=== PATIENT | female | born 1960 | race Caucasian/White ===

== ENCOUNTER 2017-02-19 01:11 | Emergency (ER) | payer BC ==
[~2017-02-19] VITALS: Ht 154.9 cm; Wt 90.7 kg
--- NOTE | 2017-02-19 01:17 | NUR ---
BB SELF; DIFUSE ABD PAIN. HAS URGE TO HAVE BM BUT UNABLE TO. PT STATES LAST BM WAS YESTERDAY MORNING, BUT VERY LITTLE. PT AOX4 RR EVEN AND UNLABORED. NO SOB NOTED. NAD NOTED. NO NVD AT THIS TIME. PT NOT DIAPHORETIC. PT GOWNED AND PLACED ON MONITOR
[2017-02-19] MEDS ORDERED: MINERAL OIL 133 ML (PYXIS) 1 EA ENEMA RC ONE ×2 (01:18→01:30)
--- NOTE | 2017-02-19 01:18 | NUR ---
DR. PIRES AT BEDSIDE FOR EVAL
--- NOTE | 2017-02-19 01:58 | NUR ---
IV STARTED ON LEFT AC 18, LABS DRAWN AND SENT TO LAB
[2017-02-19] MEDS ORDERED: IV NS 0.9% 1,000 ML ONE (01:59)
[2017-02-19] MEDS ORDERED: IV SET PRIMARY 1 EA INFUS.SET MC ONE (01:59)
[2017-02-19] MEDS ORDERED: IV NS 0.9% 1,000 ML BAG IV ONE (02:00)
[2017-02-19 02:05] LABS: BASOPHILS # (AUTO) 0.1 /CMM (0.0-0.2); BASOPHILS % (AUTO) 0.5 % (0.0-2.0); EOSINOPHILS # (AUTO) 0.5 /CMM (0.0-0.7); EOSINOPHILS % (AUTO) 4.7 % (0.0-6.0); HEMATOCRIT 43 % (33-45); HEMOGLOBIN 14.6 g/dL (11.5-14.8); LYMPHOCYTES # (AUTO) 2.6 /CMM (0.8-4.8); LYMPHOCYTES % (AUTO) 24.3 % (20.0-44.0); MEAN CORPUSCULAR HEMOGLOBIN 31 PG (26.0-33.0); MEAN CORPUSCULAR HGB CONC 34 g/dl (31.0-36.0); MEAN CORPUSCULAR VOLUME 93 fL (82-100); MONOCYTES # (AUTO) 0.8 /CMM (0.1-1.30); NEUTROPHILS # (AUTO) 6.6 /CMM (1.8-8.9); NEUTROPHILS % (AUTO) 62.5 % (43.0-81.0); PLATELET COUNT (AUTO) 281 /CMM (150-450); RDW COEFFICIENT OF VARIATION 12.9 (11.5-15.0); RED BLOOD CELL COUNT(AUTO) 4.68 MIL/uL (4.0-5.2); WHITE BLOOD COUNT (AUTO) 10.6 K/uL (4.3-11.0)
--- NOTE | 2017-02-19 02:05 | NUR ---
PER PT STATES HAD A CT SCAN OF HER ABD LAST WEEK AT [address] PER DR. WEST. DR. PIRES AT BEDSIDE SPEAKING TO PT.
--- NOTE | 2017-02-19 02:07 | NUR ---
PT TO RADIOLOGY FOR CT OF ABD
[2017-02-19 02:15] LABS: CALCIUM, SERUM 8.6 mg/dL (8.5-10.1); POTASSIUM 3.7 mmol/L (3.5-5.1)
[2017-02-19 02:21] LABS: ALBUMIN 3.8 g/dL (3.4-5.0); BILIRUBIN,DIRECT 0.1 mg/dL (0.0-0.2); BILIRUBIN,TOTAL 0.4 mg/dL (0.2-1.0); TOTAL PROTEIN, SERUM 7.8 g/dL (6.4-8.2)
--- NOTE | 2017-02-19 02:25 | NUR ---
PT RETURNED FROM CT.
[2017-02-19] MEDS ORDERED: CIPROFLOXACIN HCL 500 MG TABLET ONE (03:05)
[2017-02-19] MEDS ORDERED: METRONIDAZOLE 500 MG TABLET ONE (03:21)
[2017-02-19 03:24] LABS: APPEARANCE,URINE CLEAR (CLEAR); BILIRUBIN,URINE NEGATIVE (NEGATIVE); BLOOD, URINE NEGATIVE Ery/uL (NEGATIVE); COLOR,URINE YELLOW (YELLOW); KETONES,URINE NEGATIVE (NEGATIVE); LEUKOCYTE ESTERASE ,URINE NEGATIVE (NEGATIVE); NITRITE, URINE NEGATIVE (NEGATIVE); PROTEIN,URINE NEGATIVE (NEGATIVE); UGLUCOSE NEGATIVE (NEGATIVE); UROBILINOGEN,URINE 0.2 EU/dL (0.2)
[2017-02-19] MEDS ORDERED: CIPROFLOXACIN HCL 500 MG TABLET PO ONE (03:30)
[2017-02-19] MEDS ORDERED: METRONIDAZOLE 500 MG TABLET PO ONE (03:30)
[2017-02-19 03:44] VITALS: BP 133/88
--- NOTE | 2017-02-19 03:44 | NUR ---
IV removed. Catheter intact and site benign. Pressure and 4x4 applied to site. No bleeding noted. Patient discharged to home in stable condition. Written and verbal after care instructions given. Patient verbalizes understanding of instruction. ambulatory with a steady gait
== END 2017-02-19 03:45 | disposition home or self-care (01) ==
LOC: ER 01:13
DX: K57.32 Diverticulitis of large intestine without perforation or abscess without bleeding (principal); F41.9 Anxiety disorder, unspecified; E03.9 Hypothyroidism, unspecified
CPT/HCPCS: 36415; 74176; 80048; 80076; 81001; 83690; 85025; 96360; 99285; A4606; J7030; Z7610; 81000-TC